=== PATIENT | female | born 1995 | race Asian ===

== ENCOUNTER 2016-08-28 02:02 | Emergency (ER) | payer SELFPAY ==
[~2016-08-28] VITALS: Ht 162.6 cm; Wt 65.0 kg
[2016-08-28] MEDS ORDERED: ACETAMINOPHEN/CODEINE 300-30 MG TABLET PO ONE (05:00)
[2016-08-28] MEDS ORDERED: IBUPROFEN 600 MG TABLET PO ONE (05:00)
[2016-08-28 05:30] VITALS: BP 126/70
== END 2016-08-28 06:57 | disposition home or self-care (01) ==
LOC: EMS 02:04
DX: S33.9XXA Sprain of unspecified parts of lumbar spine and pelvis, initial encounter (principal); S16.1XXA Strain of muscle, fascia and tendon at neck level, initial encounter; V49.9XXA Car occupant (driver) (passenger) injured in unspecified traffic accident, initial encounter; Y93.89 Activity, other specified; Y92.413 State road as the place of occurrence of the external cause; Y99.9 Unspecified external cause status
CPT/HCPCS: 72050; 72070; 72100; 81025; 99284